=== PATIENT | female | born 1970 | race Two or more races ===

== ENCOUNTER → 2018-12-18 | Day surgery (SDC) | payer BC ==
[~2018-12-18] MED LIST: CETIRIZINE HCL5 MG PO; FENTANYL CITRATE/PF 100MCG/2 ML INJ ONE; FUROSEMIDE40 MG PO; LOSARTAN POTASS25 MG PO; MIDAZOLAM HCL 2 MG/2 ML VIAL ONE; PANTOPRAZOLE SO40 MG PO; PROAIR HFA INH8.5 GM INH; PROPOFOL IV EMULSION 10 MG/ML 50 ML VIAL ONE; VITAMIN D250000 UNIT PO
[2018-12-18 13:25] VITALS: BP 123/90
--- OUTSIDE RECORDS SUMMARY | 2018-12-18 15:09 | XMS REPORT ---
[facility] Address Unknown Phone Unavailable Care Team Providers Care Software Intern Name Role Phone Unavailable Unavailable Payers Payer Name Policy Type Policy Number Effective Date Expiration Date Problems This patient has no known problems. Allergies, Adverse Reactions, Alerts Allergy Name Allergy Type Status Severity Reaction(s) Onset Date Inactive Date Treating Clinician Comments No Known Allergies DA Active U 2016-05-21 00:00:00 Medications This patient has no known medications.
--- OUTSIDE RECORDS SUMMARY | 2018-12-18 15:09 | XMS REPORT | Clinical Summary ---
Author Author [facility] [employer] Address Unknown Phone Unavailable Care Team Providers Care Mold Burner Name Role Phone Manuel Cervantes MD PCP Allergies No Known Allergies Medications End Date Status Medication Sig Dispensed Refills Start Date Active famotidine (PEPCID) 20 MG Take 20 mg by 0 tablet mouth 2 (two) 7 times a day. Active losartan (COZAAR) 50 MG Take 50 mg by 0 tablet mouth daily. Active albuterol (PROAIR Inhale 2 0 HFA,PROVENTIL puffs every 6 HFA,VENTOLIN HFA) 90 (six) hours mcg/actuation inhaler as needed for wheezing. Active fluticasone-salmeterol Inhale 1 puff 0 (ADVAIR) 100-50 mcg/dose 2 (two) times DISKUS a day. Active Problems No known active problems Encounters Care Team Description Date Type Specialty Olivia Waldron MD 05/02/2018 Lab Lab after 12/17/2017 Family History Medical History Relation Name Comments No Known Problems Father Heart disease Mother Hypertension Mother Relation Name Status Comments Father Mother Social History Date Tobacco Use Types Packs/Day Years Used Never Smoker Smokeless Tobacco: Never Used Tobacco Cessation: Counseling Given: No Alcohol Use Drinks/Week oz/Week Comments No Sex Assigned at Date Recorded Not on file Industry Job Start Date Occupation Not on file Not on file Not on file Travel End Travel History Travel Start No recent travel history available. Last Filed Vital Signs Not on file Plan of Treatment Health Maintenance Due Date Last Done Comments INFLUENZA VACCINE 02/26/2019 Procedures Comments Procedure Name Priority Date/Time Associated Diagnosis SURGICAL PATHOLOGY Routine 05/02/2018 REQUEST 9:30 AM CDT after 12/17/2017 Results * Surgical pathology request (05/02/2018 9:30 AM CDT) [facility] DEPARTMENT OF PATHOLOGY AND GENOMIC MEDICINE Surgical See link below for PDF Lab [facility] DEPARTMENT pathology Report OF PATHOLOGY report AND GENOMIC MEDICINE Result status This is Final Report for [facility] DEPARTMENT [id number] OF PATHOLOGY AND GENOMIC MEDICINE Specimen Performing Organization Address City/State/Zipcode Phone Number [facility] DEPARTMENT OF [address] [place] [address] PATHOLOGY AND GENOMIC MEDICINE after 12/17/2017 Insurance Type Payer Benefit Subscriber ID Effective Phone Address Plan / Dates Group PPO BCBS BCBS xxxxxxxxxxxx 2017- CHOICE Present PPO/[employer] PPO Advance Directives Patient has advance care planning documents on file. For more information, suri lei contact: Darius Green [phone] [place] [address]
== END | disposition home or self-care (01) ==
LOC: OR 15:06
PROVIDERS: ATTEND Internal Medicine
DX: K21.0 Gastro-esophageal reflux disease with esophagitis (principal); K29.70 Gastritis, unspecified, without bleeding; K31.7 Polyp of stomach and duodenum; R74.8 Abnormal levels of other serum enzymes; I10 Essential (primary) hypertension; J45.909 Unspecified asthma, uncomplicated; N20.0 Calculus of kidney; Z01.810 Encounter for preprocedural cardiovascular examination; Z85.43 Personal history of malignant neoplasm of ovary
CPT/HCPCS: 43239; 93005; J2250; J2704